=== PATIENT | female | born 1980 | race Caucasian/White ===

== ENCOUNTER 2018-02-14 07:36 | Inpatient (IN) | payer BC ==
[2018-02-14] MEDS ORDERED: PROPOFOL 20 ML (08:24)
[2018-02-14] MEDS ORDERED: CEFAZOLIN 1 GM INJ (08:24)
[2018-02-14] MEDS ORDERED: ROCURONIUM 50 MG INJ (08:24)
[2018-02-14] MEDS ORDERED: NEOSTIGMINE 3 MG/3 ML SYRINGE (08:24)
[2018-02-14] MEDS ORDERED: GLYCOPYRROLATE 0.4 MG INJ (08:24)
[2018-02-14] MEDS ORDERED: FENTAnyl 50 MCG/ML VIAL (08:25)
[2018-02-14] MEDS ORDERED: DEXAMETHASONE 4 MG/ML 1 ML INJ (08:25)
[2018-02-14] MEDS ORDERED: ONDANSETRON 4 MG INJ (08:25)
[2018-02-14] MEDS ORDERED: MIDAZOLAM 1 MG/ML 2 ML INJ (08:25)
[2018-02-14] MEDS: VANCOMYCIN 1 GM 250 ML IVPB (08:37)
[2018-02-14] MEDS: LACTATED RINGER'S 1,000 ML IV* (08:38)
[2018-02-14] MEDS: BUPIVACAINE 0.25% (MPF) 30 ML INJ (09:29)
[2018-02-14] MEDS ORDERED: ALBUTEROL 0.083% (NEB) 2.5 MG/3 ML AMP HHN (09:30)
[2018-02-14] MEDS ORDERED: hydrALAzine 20 MG INJ IV (09:30)
[2018-02-14] MEDS ORDERED: IPRATROPIUM (NEB) 0.5 MG/2.5 ML AMP HHN (09:30)
[2018-02-14] MEDS ORDERED: EPHEDrine SULFATE 50 MG/5 ML SYG IV (09:30)
[2018-02-14] MEDS ORDERED: TRIMETHOBENZAMIDE 100 MG/ML VIAL IM ×2 (09:30→12:00)
[2018-02-14] MEDS ORDERED: DIPHENHYDRAMINE 50 MG INJ IV ×2 (09:30→13:30)
[2018-02-14] MEDS ORDERED: ONDANSETRON 4 MG INJ IV ×2 (09:30→12:00)
[2018-02-14] MEDS ORDERED: HYDROmorphONE 1 MG/5 ML IV SYRINGE IV (09:30)
[2018-02-14] MEDS ORDERED: LABETALOL HCL 20MG INJ IV (09:30)
[2018-02-14] MEDS ORDERED: HYDROmorphONE 2 MG/ML SYG ×2 (09:34→10:59)
[2018-02-14] MEDS ORDERED: PHENYLephrine (100 MCG/ML) 5ML SYG (09:52)
[2018-02-14] MEDS: POLYMYXIN/BACITRACIN 1L IRRIG (10:29)
[2018-02-14] MEDS ORDERED: DIAZEPAM 5 MG TAB PO ×2 (12:00→15:30)
[2018-02-14] MEDS ORDERED: ZOLPIDEM 5 MG TAB PO ×2 (12:00→13:30)
[2018-02-14] MEDS ORDERED: NALOXONE (0.4 MG/ML) INJ IV ×2 (12:00→13:30)
[2018-02-14] MEDS ORDERED: BETHANECHOL 25 MG TAB PO (12:00)
[2018-02-14] MEDS ORDERED: NACL 0.9% 3 ML SYG IV (12:00)
[2018-02-14] MEDS: VANCOMYCIN 1 GM (PMX) 250 ML IVPB ×2 (12:00→20:46)
[2018-02-14] MEDS ORDERED: DIPHENHYDRAMINE 50 MG CAP PO (12:00)
[2018-02-14] MEDS ORDERED: DIAZEPAM 5 MG/ML SYG IM (12:00)
[2018-02-14] MEDS: HYDROmorphONE 1 MG/5 ML IV SYRINGE IV ×3 (12:04→12:47)
[2018-02-14] MEDS: MIDAZOLAM 1 MG/ML 2 ML INJ IV (12:28)
[2018-02-14] MEDS ORDERED: HYDROmorphONE 0.2 MG/ML PCA (13:13)
[2018-02-14] MEDS: HYDROmorphONE 0.2 MG/ML PCA IV (13:18)
[2018-02-14] MEDS ORDERED: HYDROmorphONE 0.5 MG/0.5 ML SYG IV (13:30)
[2018-02-14] MEDS ORDERED: ALBUTEROL HFA 8 GM INHALER INH ×2 (15:30→20:30)
[2018-02-14] MEDS ORDERED: ALPRAZOLAM 1 MG TAB PO (15:30)
[2018-02-14] MEDS: DEXTROSE 5%-0.45% NACL 1,000 ML IV ×2 (16:19→21:41)
[2018-02-14] MEDS: RANITIDINE 150 MG TAB PO (20:46)
[2018-02-14] MEDS ORDERED: AMPHET ASP AMPHET D AMPHET XX (21:00)
[2018-02-15] MEDS: ONDANSETRON 4 MG INJ IV ×3 (00:40→18:32)
[2018-02-15] MEDS: HYDROmorphONE 0.2 MG/ML PCA IV ×2 (01:06→10:42)
[2018-02-15] MEDS: DEXTROSE 5%-0.45% NACL 1,000 ML IV ×2 (04:30→17:59)
[2018-02-15 06:00] LABS: HEMATOCRIT 33.3 % (37.0-47.0); HEMOGLOBIN 10.6 g/dl (12.0-16.0)
[2018-02-15 06:49] LABS: ANION GAP 10 (8-16); BLOOD UREA NITROGEN 4 mg/dl (7-20); CALCIUM 8.8 mg/dl (8.4-10.2); CARBON DIOXIDE 24 mmol/L (21-31); CHLORIDE 110 mmol/L (97-110); CREATININE 0.64 mg/dl (0.44-1.00); GLUCOSE 114 mg/dl (70-220); POTASSIUM 4.4 mmol/L (3.5-5.1); SODIUM 140 mmol/L (135-144)
[2018-02-15] MEDS: LEVOTHYROXINE 150 MCG TAB PO (07:55)
[2018-02-15] MEDS: VANCOMYCIN 1 GM (PMX) 250 ML IVPB (07:55)
[2018-02-15] MEDS: PROMETHAZINE 25 MG TAB PO (07:55)
[2018-02-15] MEDS ORDERED: BETHANECHOL 25 MG TAB PO (08:00)
[2018-02-15] MEDS: DOCUSATE SODIUM 100 MG CAP PO (09:00)
[2018-02-15] MEDS: FERROUS SULFATE (EC) 325 MG TAB PO ×2 (09:00→13:00)
[2018-02-15] MEDS: RANITIDINE 150 MG TAB PO ×2 (09:00→09:32)
[2018-02-15] MEDS: ASCORBIC ACID 500 MG TAB PO (09:32)
[2018-02-15] MEDS: LIOTHYRONINE 5 MCG TAB PO (09:32)
[2018-02-15] MEDS ORDERED: HYDROmorphONE 2 MG TAB PO (11:30)
[2018-02-15] MEDS ORDERED: HYDROmorphONE 4 MG TAB PO (11:30)
[2018-02-15] MEDS ORDERED: oxyCODONE (CR) 20 MG TAB [oxyCONTIN] PO (13:00)
[2018-02-15] MEDS: oxyCODONE 5 MG TAB PO (14:15)
[2018-02-15] MEDS: HYDROmorphONE 0.5 MG/0.5 ML SYG IV (18:23)
== END 2018-02-15 19:45 | disposition home or self-care (01) | DRG 519 ==
LOC: REC 07:36 → MS1 13:45
PROVIDERS: Orthopaedic Surgery
PROC: 0SB20ZZ Excision of Lumbar Vertebral Disc, Open Approach (ICD-10-PCS; principal; 2018-02-14 09:29)
PROC: 4A11X4G Monitoring of Peripheral Nervous Electrical Activity, Intraoperative, External Approach (ICD-10-PCS; 2018-02-14 09:29)
DX: M51.26 Other intervertebral disc displacement, lumbar region (principal); K50.90 Crohn's disease, unspecified, without complications; M32.9 Systemic lupus erythematosus, unspecified; M79.7 Fibromyalgia; G89.4 Chronic pain syndrome; E66.9 Obesity, unspecified; E03.9 Hypothyroidism, unspecified; Z68.37 Body mass index [BMI] 37.0-37.9, adult; Z79.891 Long term (current) use of opiate analgesic
CPT/HCPCS: 72020; 80048; 84703; 85014; 85018; 86850; 86900; 86901; 86920; 86999; 97116; 97162; 97530

== ENCOUNTER 2018-05-11 08:46 | Inpatient (IN) | payer BC ==
[2018-05-11] MEDS: BUPIVACAINE 0.25% (MPF) 30 ML INJ INJ
[2018-05-11] MEDS: VANCOMYCIN 1 GM 250 ML IVPB (08:00)
[2018-05-11] MEDS: LACTATED RINGER'S 1,000 ML (ENTER RATE) IV* (08:00)
[2018-05-11] MEDS ORDERED: LIDOCAINE 2% (SDV) 5 ML INJ (10:45)
[2018-05-11] MEDS ORDERED: SUCCINYLCHOLINE CHLORIDE 100 MG/5 ML SYG IV (10:45)
[2018-05-11] MEDS ORDERED: NEOSTIGMINE 3 MG/3 ML SYRINGE ×2 (10:45→12:46)
[2018-05-11] MEDS ORDERED: ROCURONIUM 50 MG INJ ×3 (10:45→14:15)
[2018-05-11] MEDS ORDERED: PROPOFOL 20 ML (10:45)
[2018-05-11] MEDS ORDERED: GLYCOPYRROLATE 0.4 MG INJ ×3 (10:45→12:46)
[2018-05-11] MEDS ORDERED: HYDROmorphONE 2 MG/ML SYG (10:48)
[2018-05-11] MEDS ORDERED: POLYMYXIN/BACITRACIN 1L IRRIG (10:53)
[2018-05-11] MEDS ORDERED: BUPIVACAINE 0.25% (MPF) 30 ML INJ (10:53)
[2018-05-11] MEDS ORDERED: THROMBIN 5000 UNIT VIAL (10:53)
[2018-05-11] MEDS ORDERED: GELATIN SIZE 100 SPONGE (10:53)
[2018-05-11] MEDS: POLYMYXIN/BACITRACIN 1L IRRIG IRR ×2 (12:02)
[2018-05-11] MEDS ORDERED: EPHEDrine SULFATE 50 MG/5 ML SYG (12:46)
[2018-05-11] MEDS ORDERED: METOCLOPRAMIDE 10 MG INJ (12:47)
[2018-05-11] MEDS ORDERED: DEXAMETHASONE 4 MG/ML 1 ML INJ (12:47)
[2018-05-11] MEDS: THROMBIN 5000 UNIT VIAL TOP ×2 (14:08)
[2018-05-11] MEDS: GELATIN SIZE 100 SPONGE TOP ×2 (14:08)
[2018-05-11] MEDS ORDERED: DIPHENHYDRAMINE 50 MG INJ (15:29)
[2018-05-11] MEDS ORDERED: TRIMETHOBENZAMIDE 100 MG/ML VIAL IM (15:30)
[2018-05-11] MEDS ORDERED: DIPHENHYDRAMINE 50 MG CAP PO (15:30)
[2018-05-11] MEDS ORDERED: HYDROmorphONE 1 MG/5 ML IV SYRINGE IV ×3 (15:30)
[2018-05-11] MEDS ORDERED: hydrALAzine 20 MG INJ IV (15:30)
[2018-05-11] MEDS ORDERED: LABETALOL HCL 20MG INJ IV (15:30)
[2018-05-11] MEDS ORDERED: ZOLPIDEM 5 MG TAB PO (15:30)
[2018-05-11] MEDS ORDERED: EPHEDrine SULFATE 50 MG/5 ML SYG IV (15:30)
[2018-05-11] MEDS ORDERED: NACL 0.9% 3 ML SYG IV (15:30)
[2018-05-11] MEDS ORDERED: ONDANSETRON 4 MG INJ IV ×2 (15:30)
[2018-05-11] MEDS ORDERED: HYDROCODONE/APAP (5/325) TAB PO ×2 (15:30)
[2018-05-11] MEDS ORDERED: DIAZEPAM 5 MG/ML SYG IM (15:30)
[2018-05-11] MEDS ORDERED: NALOXONE (0.4 MG/ML) INJ IV (15:30)
[2018-05-11] MEDS ORDERED: BETHANECHOL 25 MG TAB PO (15:30)
[2018-05-11] MEDS ORDERED: ACETAMINOPHEN 325 MG TAB PO (15:30)
[2018-05-11] MEDS: HYDROmorphONE 1 MG/5 ML IV SYRINGE IV (15:40)
[2018-05-11] MEDS: DIPHENHYDRAMINE 50 MG INJ IV (15:40)
[2018-05-11] MEDS ORDERED: HYDROmorphONE 0.2 MG/ML PCA (15:48)
[2018-05-11] MEDS: MIDAZOLAM 1 MG/ML 2 ML INJ IV (15:54)
[2018-05-11] MEDS ORDERED: ALBUTEROL HFA 8 GM INHALER INH (16:00)
[2018-05-11] MEDS ORDERED: ALPRAZOLAM 1 MG TAB PO (16:00)
[2018-05-11] MEDS ORDERED: morphine (ER) 15 MG TAB PO (16:00)
[2018-05-11] MEDS: METOCLOPRAMIDE 10 MG INJ IV (16:01)
[2018-05-11] MEDS: HYDROmorphONE 0.2 MG/ML PCA IV ×2 (16:39→22:30)
[2018-05-11] MEDS: DEXTROSE 5%-0.45% NACL 1,000 ML IV (18:15)
[2018-05-11] MEDS: VANCOMYCIN 1 GM (PMX) 250 ML IVPB (19:45)
[2018-05-11] MEDS: DIAZEPAM 5 MG TAB PO (20:46)
[2018-05-11] MEDS ORDERED: AMPHET ASP AMPHET D AMPHET PO (21:00)
[2018-05-11] MEDS: RANITIDINE 150 MG TAB PO (21:00)
[2018-05-11] MEDS: PROMETHAZINE 25 MG TAB PO (23:10)
[2018-05-12] MEDS: DEXTROSE 5%-0.45% NACL 1,000 ML IV ×3 (01:29→21:29)
[2018-05-12 05:42] LABS: HEMATOCRIT 28.5 % (37.0-47.0); HEMOGLOBIN 9.1 g/dl (12.0-16.0)
[2018-05-12 05:52] LABS: ANION GAP 5 (5-13); BLOOD UREA NITROGEN 3 mg/dl (7-20); CALCIUM 7.9 mg/dl (8.4-10.2); CARBON DIOXIDE 24 mmol/L (21-31); CHLORIDE 108 mmol/L (97-110); CREATININE 0.53 mg/dl (0.44-1.00); Estimated GFR > 60 mL/min (>60); GLUCOSE 118 mg/dl (70-220); POTASSIUM 3.8 mmol/L (3.5-5.1); SODIUM 137 mmol/L (135-144)
[2018-05-12] MEDS: LEVOTHYROXINE 150 MCG TAB PO (06:44)
[2018-05-12] MEDS: DIAZEPAM 5 MG TAB PO ×4 (07:33→20:31)
[2018-05-12] MEDS ORDERED: BETHANECHOL 25 MG TAB PO (08:00)
[2018-05-12] MEDS ORDERED: HYDROmorphONE 2 MG TAB PO (08:30)
[2018-05-12] MEDS: VANCOMYCIN 1 GM (PMX) 250 ML IVPB (08:32)
[2018-05-12] MEDS: DOCUSATE SODIUM 100 MG CAP PO ×2 (08:59→21:47)
[2018-05-12] MEDS: ASCORBIC ACID 500 MG TAB PO ×2 (08:59→21:47)
[2018-05-12] MEDS: RANITIDINE 150 MG TAB PO ×2 (09:00→21:00)
[2018-05-12] MEDS: FERROUS SULFATE (EC) 325 MG TAB PO ×3 (09:00→21:00)
[2018-05-12] MEDS: LIOTHYRONINE 5 MCG TAB PO (09:00)
[2018-05-12] MEDS: HYDROmorphONE 4 MG TAB PO ×2 (10:28→16:06)
[2018-05-12] MEDS: morphine (ER) 15 MG TAB PO ×2 (10:29→21:00)
[2018-05-12] MEDS: PROMETHAZINE 25 MG TAB PO ×2 (12:15→20:30)
[2018-05-12] MEDS: HYDROmorphONE 2 MG/ML SYG IV (14:36)
[2018-05-12 15:15] LABS: ADD UMIC NO; UR ASCORBIC ACID NEGATIVE (NEGATIVE); UR BILIRUBIN (Dip) NEGATIVE (NEGATIVE); UR BLOOD (Dip) NEGATIVE (NEGATIVE); UR CLARITY CLEAR (CLEAR); UR COLOR STRAW (YELLOW); UR GLUCOSE (Dip) NEGATIVE (NEGATIVE); UR KETONES (Dip) NEGATIVE (NEGATIVE); UR LEUKOCYTE ESTERASE (Dip) NEGATIVE Leu/ul (NEGATIVE); UR NITRITE (Dip) NEGATIVE (NEGATIVE); UR SPECIFIC GRAVITY (Dip) 1.008 (1.003-1.030); UR TOTAL PROTEIN (Dip) NEGATIVE (NEGATIVE); UR UROBILINOGEN (Dip) NEGATIVE (NEGATIVE)
[2018-05-12] MEDS: [UNRECOGNIZED DRUG - REMARK] XX (16:30)
[2018-05-12] MEDS: oxyCODONE 5 MG TAB PO (18:54)
[2018-05-12] MEDS ORDERED: HYDROmorphONE 0.2 MG/ML PCA IV (20:00)
[2018-05-12] MEDS: HYDROmorphONE 0.2 MG/ML PCA IV (20:35)
[2018-05-13] MEDS: [UNRECOGNIZED DRUG - REMARK] XX (00:30)
[2018-05-13] MEDS: DIAZEPAM 5 MG TAB PO ×2 (04:32→08:34)
[2018-05-13] MEDS: PROMETHAZINE 25 MG TAB PO (04:32)
[2018-05-13] MEDS: LEVOTHYROXINE 150 MCG TAB PO (04:39)
[2018-05-13] MEDS: LIOTHYRONINE 5 MCG TAB PO (04:39)
[2018-05-13] MEDS: oxyCODONE 5 MG TAB PO ×2 (07:47→12:10)
[2018-05-13] MEDS: RANITIDINE 150 MG TAB PO (08:34)
[2018-05-13] MEDS: ASCORBIC ACID 500 MG TAB PO (08:34)
[2018-05-13] MEDS: DOCUSATE SODIUM 100 MG CAP PO (08:36)
[2018-05-13] MEDS: FERROUS SULFATE (EC) 325 MG TAB PO ×2 (09:00→13:00)
[2018-05-13] MEDS: morphine (ER) 15 MG TAB PO (09:04)
[2018-05-13] MEDS: HYDROmorphONE 4 MG TAB PO (09:44)
[2018-05-13] MEDS: POLYETHYLENE GLYCOL 3350 119 GM POWDER PO (12:53)
[2018-05-13] MEDS: HYDROmorphONE 2 MG TAB PO ×2 (13:56→13:59)
== END 2018-05-13 15:00 | disposition home or self-care (01) | DRG 519 ==
LOC: SDS 08:46 → MS1 17:00 → SDS 15:34 → MS1 15:34
PROC: 0SB20ZZ Excision of Lumbar Vertebral Disc, Open Approach (ICD-10-PCS; principal; 2018-05-11 10:30)
PROC: 01NB0ZZ Release Lumbar Nerve, Open Approach (ICD-10-PCS; 2018-05-11 10:30)
DX: M51.26 Other intervertebral disc displacement, lumbar region (principal); K50.90 Crohn's disease, unspecified, without complications; M32.9 Systemic lupus erythematosus, unspecified; E03.9 Hypothyroidism, unspecified; E88.81 Metabolic syndrome and other insulin resistance; Z88.0 Allergy status to penicillin; Z88.2 Allergy status to sulfonamides
CPT/HCPCS: 72020; 80048; 81003; 84703; 85014; 85018; 86850; 86900; 86901; 87086; 88304; 88311; 90686; 97110; 97116; 97162; 97530